=== PATIENT | male | born 1995 | race Caucasian/White ===

== ENCOUNTER 2017-02-26 11:34 | Emergency (ER) | payer BC ==
[~2017-02-26] VITALS: Ht 182.9 cm; Wt 65.0 kg
[2017-02-26 11:41] VITALS: TEMP 36.8; Ht 182.9 cm; Wt 65.0 kg
[2017-02-26] MEDS ORDERED: SODIUM CHLORIDE 0.9% 1000ML 1,000 ML IV STA (12:08)
--- NOTE | 2017-02-26 12:56 | DIAGNOSTIC IMAGING REPORT ---
CHEST ONE VIEW PORTABLE CLINICAL HISTORY: Atypical chest pain COMPARISON STUDY: No previous studies for comparison. FINDINGS: The cardiac and mediastinal contours are normal. There is no evidence of focal pulmonary consolidation. There is no evidence of failure. No pleural effusions are visualized.[ IMPRESSION: No active disease in the chest. Electronically signed by: Chintan Jerome M.D. 02/26/2017 12:55 PM Dictated Date/Time: 02/26/2017 12:54 PM
[2017-02-26 13:45] LABS: MEAN CELL VOLUME 86.9 fL (80-100); MEAN CORPUSCULAR HEMOGLOBIN 29.4 pg (25-34); MEAN CORPUSCULAR HGB CONC 33.9 g/dl (32-36); MEAN PLATELET VOLUME 10.6 fL (7.4-10.4); PLATELET COUNT 277 K/uL (130-400); RED BLOOD COUNT 5.64 M/uL (4.7-6.1); WHITE BLOOD COUNT 5.09 K/uL (4.8-10.8)
[2017-02-26 14:04] LABS: BUN/CREATININE RATIO 16.5 (10-20); CALCIUM 9.8 mg/dl (8.5-10.1); CREATININE 0.95 mg/dl (0.60-1.40); POTASSIUM 3.8 mmol/L (3.5-5.1)
[2017-02-26 14:32] LABS: COMPLETE YES; EOSINOPHIL % 0.9 %; LYMPH ABS # 1.99 K/uL (1.2-3.4); LYMPHOCYTE % 39.1 %; NEUTROPHILS % 32.2 %; VARIANT LYM ABS # 1.15 K/uL; VARIANT LYMPHOCYTE % 22.6 %
[2017-02-26] MEDS ORDERED: KETOROLAC TROMETHAMINE 30 MG/ML VIAL IV STA (14:42)
[2017-02-26 16:13] VITALS: BP 138/72; PULSE 94; O2SAT 98
--- NOTE | 2017-02-28 00:14 | EMERGENCY ROOM VISIT NOTE ---
ED Visit Note First contact with patient: 11:48 Chief Complaint: I'm having chest pain on the left side. History of Present Illness: Mr. Garcia is a 21 year-old white male who is brought into the ED via ambulance complaining of chest pain. 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 Since his ablation he reports he has had no episodes of tachycardia. EMS reports patient was stable and had no acute change en route. They did give the patient aspirin. Patient reports a acute onset of pain that started approximately 1 hour ago while sitting in class. Since that time the pain has been constant. He rates his discomfort 7/10 at the onset of this pain. The pain is currently described as sharp. He places his discomfort between the sternum and the nipple on the left anterior chest. Currently he rates his discomfort 0.5/10. The pain is radiating into the left lateral neck and left anterior shoulder. He has not identified any aggravating or alleviating factors related to the pain. Patient reports when the pain began he was short of breath but that has subsequently resolved. Patient has not had any medications for pain prior to arrival at the hospital. He denies any associated symptoms. Over the weekend patient denied that he was consuming alcohol but does report he was smoking marijuana. Patient denies fevers, chills, sweats, skin eruptions, skin color changes, upper respiratory tract symptoms, wheezing, cough, orthopnea, dependent edema, previous clots, claudication, cramping, recent surgery/inactivity/extended travel, abdominal pain, nausea, vomiting, diarrhea, constipation, rectal bleeding, black/tarry stools, urinary symptoms, back/flank pain. Review of Systems: As noted above in history of present illness. All body systems were reviewed and found to be negative as noted above. Past Medical History: As previously noted Current Medications: Patient denies. Allergies to Medications: Patient denies. 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 NEUROLOGICAL: Awake, alert and oriented to person, place and time. Answering questions appropriately and following commands. Normal gait. Good hand eye coordination. SKIN: Warm, dry and pink. No soft tissue eruptions or trauma noted. HEENT: Atraumatic and normocephalic. PERRLA. Sclera white and conjunctiva pink. Oral cavity moist and pink. Pharynx is nonerythematous or edematous. Speech normal. No lymphadenopathy. Trachea midline. No jugular venous distention. No carotid bruits. BACK: No tenderness over the bony spine. No CVA tenderness. THORAX: Lungs sounds are clear to auscultation and equal bilaterally with symmetrical chest wall. No wheezing, rales or rhonchi. No crepitus, tenderness , subcutaneous air or deformities noted. HEART: Regular rate and rhythm. No gallops, rubs or murmurs are appreciated. No lifts, heaves or thrills. PMI is not displaced. ABDOMEN: Flat, soft and nontender. Positive bowel sounds in all quadrants. No guarding, rigidity or organomegaly. EXTREMITIES: Moves all extremities well on command and with purpose. All distal neurovascular statuses are intact and equal bilaterally. No dependent edema or calf tenderness/cords. ED Course: Patient is assessed as noted above. Laboratory Testing: Test 02/26/17 11:25 02/26/17 12:13 02/26/17 15:08 Range/Units White Blood Count 5.09 4.8-10.8 K/uL Red Blood Count 5.64 4.7-6.1 M/uL Hemoglobin 16.6 14.0-18.0 g/dL Hematocrit 49.0 42-52 % Mean Corpuscular Volume 86.9 80-100 fL Mean Corpuscular Hemoglobin 29.4 25-34 pg Mean Corpuscular Hemoglobin Concent 33.9 32-36 g/dl Platelet Count 277 130-400 K/uL Mean Platelet Volume 10.6 7.4-10.4 fL RDW Standard Deviation 39.7 36.4-46.3 fL RDW Coefficient of Variation 12.4 11.5-14.5 % Neutrophils % (Manual) 32.2 % Lymphocytes % (Manual) 39.1 % Variant Lymphocytes % (manual) 22.6 % Monocytes % (Manual) 5.2 % Eosinophils % (Manual) 0.9 % Neutrophils # (Manual) 1.64 1.4-6.5 K/uL Total Absolute Neutrophils 1.64 1.4-6.5 K/uL Lymphocytes # (Manual) 1.99 1.2-3.4 K/uL Absolute Variant Lymphocytes 1.15 K/uL Total Absolute Lymphocytes 3.14 1.2-3.4 K/uL Monocytes # (Manual) 0.26 0.11-0.59 K/uL Eosinophils # (Manual) 0.05 0-0.5 K/uL Red Blood Cell Morphology Unremarkable Erythrocyte Sedimentation Rate 6 0-14 mm/hr Sodium Level 137 136-145 mmol/L Potassium Level 3.8 3.5-5.1 mmol/L Chloride Level 103 98-107 mmol/L Carbon Dioxide Level 25 21-32 mmol/L Anion Gap 9.0 3-11 mmol/L Blood Urea Nitrogen 16 7-18 mg/dl Creatinine 0.95 0.60-1.40 mg/dl Est Creatinine Clear Calc Drug Dose 115.0 ml/min Estimated GFR () 134.0 Estimated GFR (Non- 115.6 BUN/Creatinine Ratio 16.5 10-20 Random Glucose 117 70-99 mg/dl Calcium Level 9.8 8.5-10.1 mg/dl Total Bilirubin 0.5 0.2-1 mg/dl Direct Bilirubin 0.1 0-0.2 mg/dl Aspartate Amino Transf (AST/SGOT) 16 15-37 U/L Alanine Aminotransferase (ALT/SGPT) 27 12-78 U/L Alkaline Phosphatase 85 45-117 U/L Total Protein 8.0 6.4-8.2 gm/dl Albumin 4.4 3.4-5.0 gm/dl Lipase 108 73-393 U/L Bedside Troponin I < 0.030 0-0.045 ng/ml Troponin I < 0.015 0-0.045 ng/ml Chest X-Ray: Was read by myself and the radiologist showing no acute infiltrates , effusions or pneumothorax. Normal heart silhouette and bony anatomy. No previous to compare. EKG #1:1141 was read by myself and reviewed with Dr. Kraus shows normal sinus rhythm with a shortened TN interval of [address] changes indicating ischemia, injury or infarction. During patient's stay in the ED he had reoccurrence of severe pain; I did reassess the patient at that time. EKG #2:1407 was read by myself and reviewed with Dr. Kraus shows normal sinus rhythm with a shortened TN interval measuring [address] changes ; slight decrease in amplitude of the lateral QRS complexes when compared to previous. Still no acute ischemic changes. Patient was hydrated with normal saline and he received 30 mg of Toradol IV for pain. Patient was reassessed multiple times during his stay in the emergency department. Patient's case was reviewed with Dr. Kraus; we agreed on diagnostic approach, treatment, disposition and plan. Patient was educated about today's findings and instructed on his treatment plan ; he verbalized understanding and agreement with this plan. Clinical Impression: Acute chest pain. 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 Disposition: Patient discharged home in stable condition accompanied by his brother; prior to departure he was real coordination and subjectively reported he was pain and symptom-free. Plan: Patient was encouraged to alternate ibuprofen and acetaminophen as needed for pain. Patient was encouraged to avoid marijuana use. 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 Patient was encouraged return ED for worsening/uncontrolled pain, shortness of breath, sensations of heart racing, fevers, vomiting or any new/concerning symptoms.
== END 2017-02-26 16:12 | disposition home or self-care (01) ==
LOC: EDBD 11:34 → C.EDC 11:36
DX: R07.9 Chest pain, unspecified (principal); I45.6 Pre-excitation syndrome; F12.10 Cannabis abuse, uncomplicated